=== PATIENT | male | born 1950 | race Caucasian/White ===

== ENCOUNTER 2021-01-26 08:29 | Day surgery (SDC) | payer MEDICARE, BC ==
[~2021-01-26] VITALS: Ht 180.3 cm; Wt 70.6 kg
[2021-01-26] MEDS ORDERED: OMEGA-3 1000 MG1 CAP PO (08:54)
[2021-01-26] MEDS ORDERED: ADVIL200 MG PO (08:55)
[2021-01-26] MEDS ORDERED: CENTRUM SILVER1 CTB PO (08:55)
[2021-01-26] MEDS ORDERED: ZYRTEC 10MG10 MG PO (08:55)
[2021-01-26] MEDS ORDERED: CALCIUM CARBON650 M2 PO (08:55)
[2021-01-26] MEDS ORDERED: TYLENOL 325MG325 MG PO (08:56)
[2021-01-26 08:57] VITALS: BP 110/71; PULSE 71; TEMP 98.2
[2021-01-26 11:30] VITALS: BP 147/76; PULSE 77; TEMP 97.7
--- NOTE | 2021-01-26 11:30 | NUR ---
Pt to [facility] bay 5 via cart from PACU. Pt drowsy, but awake. Pt rates pain 5/10 to RLQ. Pt denies nausea. Incisions to abdomen x3 are clean and dry with Exofen inplace. in room. Water given per pt request. Call light within reach. Side rails up x2.
[2021-01-26 11:45] VITALS: BP 132/74; PULSE 66
--- NOTE | 2021-01-26 11:45 | NUR ---
Pt given Ultran 50mg PO at 1139 for c/o pain 5/ to RLQ. Will continue to monitor. Call light within reach.
[2021-01-26] MEDS ORDERED: ULTRAM 50MG TAB50 MG PO (11:46)
[2021-01-26 12:00] VITALS: BP 135/81; PULSE 70
--- NOTE | 2021-01-26 12:00 | NUR ---
Coffee given per pt request. Pt continues to rest. Denies needs. Call light within reach.
[2021-01-26 12:15] VITALS: BP 132/77; PULSE 78
--- NOTE | 2021-01-26 12:15 | NUR ---
Pt rating pain 02/24. Pt states "It's still about the same." Pt denies need for pain medication at this time. Muffin given per pt request. Call light within reach,.
[2021-01-26 12:45] VITALS: BP 135/65; PULSE 74
--- NOTE | 2021-01-26 12:45 | NUR ---
Pt requests something for pain "to help when I have to get up." Fentanyl 25mcg IVSP given per PRN orders. Pt tolerating PO food and fluids without nausea. Pt denies further needs. Call light within reach.
--- NOTE | 2021-01-26 13:10 | NUR ---
Pt up to restroom with stand by assistance. Pt voids without difficulties. Pt back to room. IV site discontinued with all parts intact. Pt up to dress with 's assistance. Call light within reach.
--- NOTE | 2021-01-26 13:30 | NUR ---
Discharge instructions reviewed. Pt and voice understanding. Pt escorted to private car via wheel chair. Pt accompanied home by his .
== END 2021-01-26 13:30 | disposition home or self-care (01) ==
LOC: SDCO 08:29
DX: K40.90 Unilateral inguinal hernia, without obstruction or gangrene, not specified as recurrent (principal); J44.9 Chronic obstructive pulmonary disease, unspecified; F17.210 Nicotine dependence, cigarettes, uncomplicated; Z79.899 Other long term (current) drug therapy; Z20.822 Contact with and (suspected) exposure to COVID-19
CPT/HCPCS: C1781; J0690; J1885; J2405; J2704; J3010; J7120